=== PATIENT | female | born 1975 | race Caucasian/White ===

== ENCOUNTER 2018-03-22 11:24 | Emergency (ER) | payer OTHER ==
[2018-03-22] MEDS ORDERED: ASPIRIN 325 MG TABLET PO ONE (11:39)
--- NOTE | 2018-03-22 11:40 | ER Document Report ---
ED Medical Screen (RME) - General Chief Complaint: Chest Pain Stated Complaint: CHEST PAIN Time Seen by Provider: 03/22/18 11:39 Mode of Arrival: Ambulatory Information source: Patient TRAVEL OUTSIDE OF THE [place] IN LAST 30 DAYS: No - HPI Patient complains to provider of: cp Onset: This morning - pt with onset of chest pain/pressurre while at work this am. Has not taken ASA today - Related Data Allergies/Adverse Reactions: No Known Allergies Allergy (Verified 03/22/18 11:24) Physical Exam - Vital signs Vitals: Temp Pulse Resp BP Pulse Ox 97.7 F 73 18 129/81 H 100 03/22/18 11:34 03/22/18 11:34 03/22/18 11:34 03/22/18 11:34 03/22/18 11:34 Course - Vital Signs Vital signs: Temp Pulse Resp BP Pulse Ox 97.7 F 73 18 129/81 H 100 03/22/18 11:34 03/22/18 11:34 03/22/18 11:34 03/22/18 11:34 03/22/18 11:34
[2018-03-22 12:04] LABS: ABSOLUTE EOSINOPHILS # (AUTO) 0.1 10^3/uL (0.0-0.6); ABSOLUTE LYMPHOCYTES (AUTO) 2.1 10^3/uL (0.5-4.7); ABSOLUTE MONOCYTES (AUTO) 0.4 10^3/uL (0.1-1.4); ABSOLUTE NEUT (AUTO) 5.2 10^3/uL (1.7-8.2); BASOPHILS % (AUTO) 0.4 % (0-2); EOSINOPHILS % (AUTO) 1.2 % (0-6); HEMATOCRIT 39.8 % (36.0-47.0); HEMOGLOBIN 13.5 g/dL (12.0-15.5); LYMPHOCYTES % (AUTO) 26.8 % (13-45); MEAN CORPUSCULAR HEMOGLOBIN 28.3 pg (27.0-33.4); MEAN CORPUSCULAR HGB CONC 33.8 g/dL (32.0-36.0); MEAN CORPUSCULAR VOLUME 84 fl (80-97); MONOCYTES % (AUTO) 4.5 % (3-13); PLATELET COUNT 232 10^3/uL (150-450); RED BLOOD COUNT 4.75 10^6/uL (3.72-5.28); SEGMENTED NEUTROPHILS % (AUTO) 67.1 % (42-78); TOTAL CELLS COUNTED % (AUTO) 100 %; WHITE BLOOD COUNT 7.8 10^3/uL (4.0-10.5)
[2018-03-22 12:26] LABS: ALANINE AMINOTRANSFERASE 32 U/L (9-52); ALBUMIN 4.1 g/dL (3.5-5.0); ALKALINE PHOSPHATASE 95 U/L (38-126); ANION GAP 12 (5-19); ASPARTATE AMINO TRANSFERASE 24 U/L (14-36); BILIRUBIN,DIRECT 0.2 mg/dL (0.0-0.4); BILIRUBIN,TOTAL 0.4 mg/dL (0.2-1.3); BLOOD UREA NITROGEN 14 mg/dL (7-20); CALCIUM 9.8 mg/dL (8.4-10.2); CARBON DIOXIDE 26 mmol/L (22-30); CHLORIDE 105 mmol/L (98-107); CREATINE KINASE 76 U/L (30-135); GLUCOSE 101 mg/dL (75-110); POTASSIUM 4.5 mmol/L (3.6-5.0); SODIUM 143.3 mmol/L (137-145)
[2018-03-22 12:32] LABS: CREATINE KINASE MB 1.29 ng/mL (<4.55); TROPONIN I < 0.012 ng/mL
--- NOTE | 2018-03-22 12:49 | RADIOLOGY REPORT (SQ) ---
EXAM DESCRIPTION: CHEST 2 VIEWS COMPLETED DATE/TIME: 03/22/2018 12:19 pm REASON FOR STUDY: cp COMPARISON: None. TECHNIQUE: Frontal and lateral radiographic views of the chest acquired. NUMBER OF VIEWS: Two view. LIMITATIONS: None. FINDINGS: LUNGS AND PLEURA: No opacities, masses or pneumothorax. No pleural effusion. MEDIASTINUM AND HILAR STRUCTURES: No masses or contour abnormalities. HEART AND VASCULAR STRUCTURES: Heart normal size. No evidence for failure. BONES: No acute findings. HARDWARE: None in the chest. OTHER: No other significant finding. IMPRESSION: NO SIGNIFICANT RADIOGRAPHIC FINDING IN THE CHEST. TECHNICAL DOCUMENTATION: JOB ID: [id number]- All Rights Reserved Reading location - IP/workstation name: [email or web address]
[2018-03-22] MEDS ORDERED: KETOROLAC TROMETHAMINE INJ/PF 30 MG/1 ML SDV IV ONE (13:33)
--- NOTE | 2018-03-22 13:38 | ER Document Report ---
ED General - General Chief Complaint: Chest Pain Stated Complaint: CHEST PAIN Time Seen by Provider: 03/22/18 11:39 Mode of Arrival: Ambulatory TRAVEL OUTSIDE OF THE [place] IN LAST 30 DAYS: No - HPI Notes: Patient is a 42-year-old female that presents to the emergency department for chief complaint of chest pain patient reports she has had 2 episodes of chest pain in the last few days. 4 days ago while at work she had 20-30 minutes of left-sided chest pressure that occurred when she was moving around. The pain seemed to relieve some with rest and then did not recur until today. Today she states she has had similar left-sided chest pressure for the last few hours. Pain occurred while at rest. Pain radiates around her left chest wall. She denies any aggravating or relieving factors. She did take an aspirin with no change in symptoms. Patient has no associated dyspnea, diaphoresis, nausea or vomiting. She denies history of heart disease and has never had a stress test done. She denies any recent surgery, travel, immobilization, leg edema or exogenous estrogen use. Currently she states her chest pain is almost completely resolved. Past Medical History: Endometriosis Past Surgical History: Hysterectomy, x2, tonsils and adenoids removed Social History: Daily tobacco, denies drugs and alcohol. Family History: Reviewed and noncontributory for presenting illness Allergies: Reviewed, see documented allergy list. REVIEW OF SYSTEMS: CONSTITUTIONAL : No fever No chills No diaphoresis No recent illness EENT: No vision changes No congestion No sore throat CARDIOVASCULAR: chest pain No palpitations RESPIRATORY: No shortness of breath No cough No difficulty breathing GASTROINTESTINAL: No abdominal pain No nausea No vomiting No diarrhea GENITOURINARY: No dysuria No hematuria No difficulty urinating MUSCULOSKELETAL: No back pain No leg pain No arm pain SKIN: No rashes No lesions LYMPHATIC: No swollen, enlarged glands. NEUROLOGICAL: No lightheadedness No headache No weakness No paresthesias PSYCHIATRIC: No anxiety No depression PHYSICAL EXAMINATION: Vital signs reviewed, nursing noted reviewed. GENERAL: Well-appearing, well-nourished and in no acute distress. HEAD: Atraumatic, normocephalic. EYES: Eyes appear normal, extraocular movements intact, sclera anicteric, conjunctiva are normal. ENT: nares patent, oropharynx clear without exudates. Moist mucous membranes. NECK: Normal range of motion, supple without lymphadenopathy LUNGS: Breath sounds clear to auscultation bilaterally and equal. No wheezes rales or rhonchi. HEART: Regular rate and rhythm without murmurs ABDOMEN: Soft, nontender, normoactive bowel sounds. No rebound, guarding, or rigidity. No masses appreciated. EXTREMITIES: Nontender, good range of motion, no pitting or edema. NEUROLOGICAL: No focal neurological deficits. Moves all extremities spontaneously Motor and sensory grossly intact on exam. PSYCH: Normal mood, normal affect. SKIN: Warm, Dry, normal turgor, no rashes or lesions noted on exposed skin - Related Data Allergies/Adverse Reactions: Penicillins Allergy (Verified 03/22/18 11:42) Past Medical History - General Information source: Patient - Social History Smoking Status: Current Every Day Smoker Frequency of alcohol use: None Drug Abuse: None Family History: Reviewed & Not Pertinent Patient has suicidal ideation: No Patient has homicidal ideation: No Renal/ Medical History: Denies: Hx Peritoneal Dialysis Past Surgical History: Reports: Hx Section, Hx Hysterectomy Review of Systems - Review of Systems Notes: Dictated Physical Exam - Vital signs Vitals: Temp Pulse Resp BP Pulse Ox 97.7 F 73 18 129/81 H 100 03/22/18 11:34 03/22/18 11:34 03/22/18 11:34 03/22/18 11:34 03/22/18 11:34 - Notes Notes: Dictated Course - Re-evaluation Re-evalutation: 03/22/18 13:36 vitals reviewed. Nursing notes reviewed. EKG shows no acute ischemia. Patient is low risk for adverse major adverse cardiac event in the next 30 days based on heart score of 2. She received aspirin for her chest pain. Her initial workup including troponin is negative. She has no electrolyte derangements. Chest x-ray shows no pneumothorax or other acute cardiopulmonary disease. Delta troponin will be drawn at 1445. Patient given Toradol for pain Laboratory 03/22/18 03/22/18 03/22/18 11:47 11:47 11:47 WBC 7.8 RBC 4.75 Hgb 13.5 Hct 39.8 MCV 84 MCH 28.3 MCHC 33.8 RDW 14.0 Plt Count 232 Seg Neutrophils % 67.1 Lymphocytes % 26.8 Monocytes % 4.5 Eosinophils % 1.2 Basophils % 0.4 Absolute Neutrophils 5.2 Absolute Lymphocytes 2.1 Absolute Monocytes 0.4 Absolute Eosinophils 0.1 Absolute Basophils 0.0 Sodium 143.3 Potassium 4.5 Chloride 105 Carbon Dioxide 26 Anion Gap 12 BUN 14 Creatinine 0.73 Est GFR ( Amer) > 60 Est GFR (Non-Af Amer) > 60 Glucose 101 Calcium 9.8 Total Bilirubin 0.4 Direct Bilirubin 0.2 Neonat Total Bilirubin Not Reportable Neonat Direct Bilirubin Not Reportable Neonat Indirect Bili Not Reportable AST 24 ALT 32 Alkaline Phosphatase 95 Creatine Kinase 76 CK-MB (CK-2) 1.29 Troponin I < 0.012 Total Protein 7.0 Albumin 4.1 Chest X-Ray 03/22/18 11:39 IMPRESSION: NO SIGNIFICANT RADIOGRAPHIC FINDING IN THE CHEST. 03/22/18 14:54 Patient reevaluated and is still hemodynamically stable. She is denying any chest pain currently. Patient's delta troponin will be drawn now. 03/22/18 15:46 Delta troponin is negative. Patient will be discharged home in stable condition. She will follow with her primary care doctor for outpatient stress test next week. She will return for any new or worsening symptoms. Patient in agreement with this plan and stable at time of discharge. - Vital Signs Vital signs: Temp Pulse Resp BP Pulse Ox 97.7 F 73 17 114/85 100 03/22/18 11:34 03/22/18 11:34 03/22/18 13:01 03/22/18 13:01 03/22/18 13:01 - Laboratory Result Diagrams: 03/22/18 11:47 03/22/18 11:47 - EKG Interpretation by Me Additional EKG results interpreted by me: 03/22/18 13:39 interpreted by myself: 1131: NSR, rate 74, no STEMI, no ectopy, normal axis Discharge - Discharge Clinical Impression: Chest pain Qualifiers: Chest pain type: unspecified Qualified Code(s): R07.9 - Chest pain, unspecified Condition: Stable Disposition: HOME, SELF-CARE Instructions: Chest Pain of Unclear Cause ([facility]) Additional Instructions: Please return to the emergency department if you have any worsening, or concern of your symptoms. Please return to the emergency department if you develop chest pain, difficulty breathing, severe abdominal pain, or ongoing vomiting. Please follow-up with your primary care physician in 2-3 days and any other recommended physicians. If prescribed, take all medications as directed. If you have any questions or concerns do not hesitate to return the emergency department for evaluation. See your primary care doctor for cardiac stress test in the next week
[2018-03-22 15:48] VITALS: BP 102/70
--- NOTE | 2018-03-22 17:46 | EKG REPORT ---
SEVERITY:- NORMAL ECG - SINUS RHYTHM : Confirmed by: Freedom Olguin MD 22-Mar-2018 17:45:59
== END 2018-03-22 15:53 | disposition home or self-care (01) ==
LOC: ER 11:24
DX: R07.89 Other chest pain (principal); F17.200 Nicotine dependence, unspecified, uncomplicated
CPT/HCPCS: 93005; 99285; 96374; 36415; 82553; 82550; 85025; 80053; 84484; 71046; 93010; J1885